=== PATIENT | female | born 1970 ===

== ENCOUNTER 2016-05-16 16:37 | Emergency (ER) | payer BC ==
--- NOTE | 2016-05-16 16:56 | UC ---
Lower Extremity/Ankle HPI - HPI Summary HPI Summary: fell down 4 basement stairs 1 hour ago immediate pain in right lateral ankle - History of Current Complaint Chief Complaint: UCLowerExtremity Stated Complaint: RIGHT ANKLE INJURY Time Seen by Provider: 05/16/16 16:45 Hx Obtained From: Patient Hx Last Menstrual Period: 05/16/16 ?: No Onset/Duration: Sudden Onset, Lasting Hours, Still Present Severity Initially: Moderate Severity Currently: Moderate Pain Intensity: 8 Pain Scale Used: 0-10 Numeric Aggravating Factor(s): Standing, Ambulation Alleviating Factor(s): Rest, Elevation, Ice, OTC Meds Able to Bear Weight: No - Allergies/Home Medications Allergies/Adverse Reactions: Allergies Allergy/AdvReac Type Severity Reaction Status Date / Time Penicillins Allergy Unknown Unknown Verified 05/16/16 16:48 Reaction Details Clarithromycin [From Biaxin] Allergy Vomiting Verified 05/16/16 16:48 Erythromycin AdvReac Severe Vomiting Verified 05/16/16 16:48 PMH/Surg Hx/FS Hx/Imm Hx Previously Healthy: No Endocrine History Of: Reports: Thyroid Disease - hypothyroidism, Hypothyroidism Respiratory History Of: Reports: Asthma - Surgical History Surgical History: Yes Surgery Procedure, Year, and Place: tubes in ears - Family History Known Family History: Positive: Cardiac Disease, Hypertension, Diabetes, Other - DAD CEREBRAL HEMORRHAGE AGE 80 - Social History Occupation: Employed Full-time Lives: With Family Alcohol Use: Occasionally Substance Use Type: None Smoking Status (MU): Never Smoked Tobacco Review of Systems Constitutional: Negative Skin: Negative Eyes: Negative ENT: Negative Respiratory: Negative Cardiovascular: Negative Gastrointestinal: Negative Genitourinary: Negative Motor: Negative Neurovascular: Negative Musculoskeletal: Negative, Arthralgia, Decreased ROM - ankle, Edema Neurological: Negative Psychological: Negative All Other Systems Reviewed And Are Negative: Yes Physical Exam Triage Information Reviewed: Yes Appearance: Well-Appearing, Well-Nourished, Pain Distress - mild Vital Signs: Initial Vital Signs Temp 98.8 F 05/16/16 16:41 Pulse 79 05/16/16 16:41 Resp 12 05/16/16 16:41 BP 120/67 05/16/16 16:41 Pulse Ox 99 05/16/16 16:41 Vital Signs Reviewed: Yes Eye Exam: Normal Eyes: Positive: Conjunctiva Clear ENT Exam: Normal ENT: Positive: Normal ENT inspection, Hearing grossly normal. Negative: Nasal congestion, Nasal drainage, Tonsillar swelling, Tonsillar exudate Dental Exam: Normal Neck exam: Normal Neck: Positive: Supple, Nontender Respiratory Exam: Normal Respiratory: Positive: Chest non-tender, Normal breath sounds, No respiratory distress, No accessory muscle use Cardiovascular Exam: Normal Cardiovascular: Positive: RRR, Pulses Normal, Brisk Capillary Refill Musculoskeletal: Positive: Strength Limited @ - right ankle, ROM Limited @ - right ankle, Edema @ - right ankle Neurological Exam: Normal Neurological: Positive: Alert, Muscle Tone Normal Psychological Exam: Normal Skin Exam: Normal Diagnostics - Radiology No standard instances Xray Interpretation: Positive (See Comments) Radiology Interpretation Completed By: Radiologist - acute swelling --no fx Lower Extremity Course/Dx - Course Course Of Treatment: rice, gel splint, crutches, nwb, to pain free follow with ortho pain med - Differential Dx/Diagnosis Differential Diagnosis/HQI/PQRI: Contusion, Fracture (Closed), Sprain, Strain Provider Diagnoses: Right ankle sprain Discharge - Discharge Plan Condition: Stable Disposition: HOME Prescriptions: HYDROcodone/ACETAMIN 5-325 MG* [[place] 5-325 TAB*] 1 tab PO Q4H PRN #12 tab MDD 4 PRN Reason: Pain Hydrocodone-Acetaminophen [Hydrocodone/Acetaminophen 5-325 mg] 1 tab PO 12 #1 tab MDD 4 Patient Education Materials: Hydrocodone/Acetaminophen (By mouth), Ibuprofen ( By mouth), Ankle Sprain (ED), Ankle Stirrup Splint (ED), RICE Therapy (ED), Non Weight Bearing Activity (ED) Forms: *Work Release Referrals: Gavin Pierre MD [Medical Doctor] - 3 Days Non Staff,Doctor [Medical Doctor] -
--- NOTE | 2016-05-16 17:18 | RAD ---
INDICATION: Right ankle injury. TECHNIQUE: 3 views of the right ankle were obtained. FINDINGS: Soft tissue swelling is noted along the anterolateral aspect of the ankle. No fracture is seen. Joint spaces appear maintained. IMPRESSION: NO EVIDENCE FOR FRACTURE.
[2016-05-16] MEDS ORDERED: HYDROcodone/ACETAMIN 5-325 MG* 1 TAB PO ONE (17:32)
[2016-05-16 17:59] VITALS: BP 118/80
== END 2016-05-16 18:01 | disposition home or self-care (01) ==
LOC: UCCORT 16:37
DX: S93.401A Sprain of unspecified ligament of right ankle, initial encounter (principal); M25.471 Effusion, right ankle; W10.8XXA Fall (on) (from) other stairs and steps, initial encounter; J03.90 Acute tonsillitis, unspecified; J45.909 Unspecified asthma, uncomplicated; E03.9 Hypothyroidism, unspecified; Z88.0 Allergy status to penicillin; Z88.1 Allergy status to other antibiotic agents
CPT/HCPCS: 99213; G0463

== ENCOUNTER 2019-05-30 17:35 | Emergency (ER) | payer BC ==
[2019-05-30 18:00] VITALS: BP 142/77
--- NOTE | 2019-05-30 18:06 | UC ---
Respiratory Complaint HPI - HPI Summary HPI Summary: 48-year-old female who has had wheezing and cough over the past few days. She called her primary care provider and was started on doxycycline. She started prednisone 50 mg yesterday and 40 mg today however has had no improvement. She states proximally 1 year ago at this time she had similar bronchitis where she had to be put on an antibiotic and prednisone. She has an albuterol inhaler at home however has not been using it. - History of Current Complaint Chief Complaint: UCRespiratory Stated Complaint: COUGH,SOB Time Seen by Provider: 05/30/19 17:53 Hx Obtained From: Patient Hx Last Menstrual Period: 05/16/16 ?: No Onset/Duration: Gradual Onset Timing: Intermittent Episodes Severity Initially: Mild Severity Currently: Mild Pain Intensity: 0 Character: Cough: Nonproductive Aggravating Factors: Deep Breaths Alleviating Factors: Nothing Associated Signs And Symptoms: Positive: Wheezing, URI, Nasal Congestion - Allergies/Home Medications Allergies/Adverse Reactions: Allergies Allergy/AdvReac Type Severity Reaction Status Date / Time clarithromycin [From Biaxin] Allergy Vomiting Verified 05/30/19 17:54 erythromycin base Allergy Vomiting Verified 05/30/19 17:54 Penicillins Allergy Vomiting Verified 05/30/19 17:54 Sulfa (Sulfonamide Allergy Vomiting Verified 05/30/19 17:54 Antibiotics) Home Medications: Home Medications Triamcinolone NASAL SPRAY* [Nasacort Aq Nasal [place]*] 1 spray DAILY 10/17/15 [ History Confirmed 05/30/19] DOXYcycline CAP(*) [DOXYcycline 100MG CAP(*)] 1 cap BID 05/30/19 [History Confirmed 05/30/19] Levothyroxine TAB* [Synthroid 25 MCG TAB*] 1 tab DAILY 05/30/19 [History Confirmed 05/30/19] Montelukast Sodium TAB* [Singulair 10 MG TAB*] 1 tab DAILY 05/30/19 [History Confirmed 05/30/19] predniSONE 10 mg TAB [Deltasone 10 MG TAB*] 10 mg PO DAILY 11 Days #26 tab 05/29 [Rx] predniSONE 10 mg TAB [Deltasone 10 MG TAB*] 40 mg DAILY 05/30/19 [History Confirmed 05/30/19] PMH/Surg Hx/FS Hx/Imm Hx Previously Healthy: Yes Endocrine History: Thyroid Disease Respiratory History: Asthma - Surgical History Surgical History: Yes Surgery Procedure, Year, and Place: tubes in ears. gallbladder - Family History Known Family History: Positive: Cardiac Disease, Hypertension, Diabetes, Other - DAD CEREBRAL HEMORRHAGE AGE 80 - Social History Occupation: Employed Full-time Lives: With Family Alcohol Use: Occasionally Substance Use Type: None Smoking Status (MU): Never Smoked Tobacco Review of Systems All Other Systems Reviewed And Are Negative: Yes ENT: Positive: Nasal Discharge Respiratory: Positive: Shortness Of Breath - Today she states that she was having a conversation with her mother on the phone and she felt mildly short of breath with more wheezing so she felt she should be rechecked today., Cough - Nonproductive cough. Cardiovascular: Negative: Chest Pain Is Patient Immunocompromised?: No Physical Exam Triage Information Reviewed: Yes Appearance: Well-Appearing, No Pain Distress, Well-Nourished Vital Signs: Initial Vital Signs Temp 97.1 F 05/30/19 17:57 Pulse 93 05/30/19 17:57 Resp 16 05/30/19 17:57 BP 142/77 05/30/19 17:57 Pulse Ox 100 05/30/19 17:57 Vital Signs Reviewed: Yes Eyes: Positive: Conjunctiva Clear ENT: Positive: Pharynx normal, Nasal congestion, Nasal drainage - Clear nasal coryza, TMs normal, Uvula midline Neck: Positive: Supple, Nontender, No Lymphadenopathy Respiratory: Positive: No respiratory distress, No accessory muscle use, Wheezing - Mild wheezing with forced expiration posteriorly. Cardiovascular: Positive: RRR, No Murmur, Pulses Normal, Brisk Capillary Refill Musculoskeletal Exam: Normal Neurological Exam: Normal Psychological Exam: Normal Skin Exam: Normal Respiratory Course/Dx - Course Course Of Treatment: DuoNeb treatment: The patient had decreased wheezing and increased air movement felt much better following the DuoNeb treatment. I'm going to do a prednisone taper for a longer period of time than her primary care provider had prescribed for her. She has benzonatate at home, she is to start that 3 times a day for cough. She is to use her albuterol inhaler 2 puffs every 4-6 hours for wheezing or tight cough. She is to go to the emergency room if she has any worsening symptoms. The patient is agreeable to this plan of action. Chest x-ray: Negative as read by myself and Dr. Flores. - Differential Dx/Diagnosis Provider Diagnosis: Bronchitis Discharge ED - Sign-Out/Discharge Documenting (check all that apply): Patient Departure All imaging exams completed and their final reports reviewed: No - Discharge Plan Condition: Good Disposition: HOME Prescriptions: predniSONE 10 mg TAB [Deltasone 10 MG TAB*] 10 mg PO DAILY 11 Days #26 tab Patient Education Materials: Acute Bronchitis (ED) Forms: *Work Release Referrals: Angélica Lin PA [Primary Care Provider] - Additional Instructions: Increase fluids, take the prednisone with food, use your albuterol inhaler 2 puffs every 4-6 hours as needed for tight cough or wheezing. Follow-up with your primary care provider if no improvement in 4 or 5 days and go to the emergency room if you have any difficulty breathing, worsening symptoms. - Billing Disposition and Condition Condition: GOOD Disposition: Home
[2019-05-30] MEDS ORDERED: Albuterol/Ipratropium NEB.SOL* Albuterol 2.5 MG/Ipratropium 0.5 MG 3 ML INH ONE (18:11)
--- NOTE | 2019-05-31 15:04 | UC ---
- Progress Note Progress Note: CXR report reviewed. No management change from avs from yesterday. Course/Dx - Diagnoses Provider Diagnoses: Bronchitis Discharge ED - Sign-Out/Discharge Documenting (check all that apply): Post-Discharge Follow Up All imaging exams completed and their final reports reviewed: No - Discharge Plan Condition: Good Disposition: HOME Prescriptions: predniSONE 10 mg TAB [Deltasone 10 MG TAB*] 10 mg PO DAILY 11 Days #26 tab Patient Education Materials: Acute Bronchitis (ED) Forms: *Work Release Referrals: Angélica Lin PA [Primary Care Provider] - Additional Instructions: Increase fluids, take the prednisone with food, use your albuterol inhaler 2 puffs every 4-6 hours as needed for tight cough or wheezing. Follow-up with your primary care provider if no improvement in 4 or 5 days and go to the emergency room if you have any difficulty breathing, worsening symptoms. - Billing Disposition and Condition Condition: GOOD Disposition: Home
== END 2019-05-30 19:08 | disposition home or self-care (01) ==
LOC: UCCORT 17:35
DX: J45.909 Unspecified asthma, uncomplicated (principal); E07.9 Disorder of thyroid, unspecified; Z88.1 Allergy status to other antibiotic agents; Z88.0 Allergy status to penicillin; Z88.2 Allergy status to sulfonamides; Z79.52 Long term (current) use of systemic steroids; Z79.890 Hormone replacement therapy
CPT/HCPCS: 71046; 99212; A9270-GY; G0463